=== PATIENT | male | born 1945 | race Caucasian/White ===

== ENCOUNTER 2018-07-15 11:33 | Day surgery (SDC) | payer MEDICARE, OTHER ==
[~2018-07-15] VITALS: Ht 177.8 cm; Wt 97.8 kg
[~2018-07-15 11:33] MED LIST: ALBU3IS INH; ALBU90OI6 INH; ALBU90OI61 INH; ALFU10 PO; ASPI325 PO; AZIT500 PO; BENZ100A PO; BUPR150T2 PO; BUPR75 PO; Budeprion Xl300 MG PO; CALCITRATE200 MG PO; CHOL10002 PO; CITA20 PO; Citalopram HBr40 MG PO; Colace100 MG PO; ESOM20 PO; FLUSAL2505 IH; FLUSAL5005 INH; GUAI600T33 PO; HYDCHL25 PO; Hair, Skin & N1 EACH PO; IBUP600 PO; Kristalose20 GM PO; LAVAP17G PO; LEVFLO500 PO; LEVO750 PO; MIRT15 PO; MONT10T PO; MULTI VITAMIN1 EACH PO; MULTIVITAMIN; PRED20 PO; Percocet 5-3251 EACH PO; Prednisone10 MG PO; Prednisone20 MG PO; Stool Softener100 MG PO; TRAM50 PO; Ventolin Soln3 ML INH; ZAFI20 PO; [UNRECOGNIZED DRUG - REMARK] PO
== END 2018-07-15 14:10 | disposition home or self-care (01) ==
LOC: ORSCSDS 11:33
PROVIDERS: Internal Medicine Gastroenterology
PROC: 0DB98ZX Excision of Duodenum, Via Natural or Artificial Opening Endoscopic, Diagnostic (ICD-10-PCS; principal; 2018-07-15 13:15)
PROC: 0DB68ZX Excision of Stomach, Via Natural or Artificial Opening Endoscopic, Diagnostic (ICD-10-PCS; principal; 2018-07-15 13:15)
DX: R10.13 Epigastric pain (principal); K31.7 Polyp of stomach and duodenum; K59.00 Constipation, unspecified; K20.9 Esophagitis, unspecified; K29.70 Gastritis, unspecified, without bleeding; K29.80 Duodenitis without bleeding; K21.9 Gastro-esophageal reflux disease without esophagitis; J44.9 Chronic obstructive pulmonary disease, unspecified; F32.9 Major depressive disorder, single episode, unspecified; F17.210 Nicotine dependence, cigarettes, uncomplicated; Z79.899 Other long term (current) drug therapy
CPT/HCPCS: 88305; 88342; J7120

== ENCOUNTER 2019-11-04 15:42 | Inpatient (IN) | payer MEDICARE, OTHER ==
[~2019-11-04] VITALS: Ht 330.2 cm; Wt 104.4 kg
[~2019-11-04 15:42] MED LIST changes: +ALBU2.5V5 NEB; +ALBU90OI INH; +ALLER-TEC PO; -CHOL10002 PO; +COQ1050 MG PO; +FLUT1DIS5 INH; +TIOT18 INH; +VITAMIN D31 ML PO; -Ventolin Soln3 ML INH
--- NOTE | 2019-11-08 09:46 | NUR ---
PT ARRIVED TO [facility] VIA WHEELCHAIR. IS ABLE TO AMBULATE SHORT DISTANCES WITH PERSONAL CANE. History, Chart, Medications and Allergies reviewed before start of procedure.Patient confirms NPO status and agrees with scheduled surgery. PATIENT REPORTS COMPLETING 5 CONSECUTIVE DAYS OF MUPIROCIN OINTMENT AND CHLORHEXIDINE SHOWERS. BILATERAL UPPER AND LOWER LOBE EXPIRATORY WHEEZES PRESENT. Surgical site prepped with 2% Chlorhexidine cloth wipe.
--- NOTE | 2019-11-08 19:24 | NUR ---
SHIFT SUMMARY PT A&OX4, VSS, S/P R AUGUST, SURGICAL DRESSINGS APPEAR CDI, WIGGLES TOES/MOVES FEET AND DENIES N&T IN ALL EXT'S. PAIN MANAGED PER EMAR. JOSH PO, DENIES N&V. I.S. EDU & ENC 10X Q1H WHILE AWAKE, PT DEMONSTRATED. REPORT GIVEN TO ELIDA SPARKS.
[2019-11-09 04:12] LABS: BASOPHILS ABSOLUTE AUTO 0.02 K/mm3 (0.00-0.23); BASOPHILS PERCENT AUTO 0 % (0-2); EOSINOPHILS ABSOLUTE AUTO 0.01 K/mm3 (0.00-0.68); EOSINOPHILS PERCENT AUTO 0 % (0-6); Hematocrit 34.3 % (37.0-53.0); IMMATURE GRAN ABSOLUTE AUTO 0.05 K/mm3 (0.00-0.10); IMMATURE GRAN PERCENT AUTO 0 % (0-1); LYMPHOCYTES ABSOLUTE AUTO 1.41 K/mm3 (0.84-5.20); LYMPHOCYTES PERCENT AUTO 12 % (21-46); MONOCYTES PERCENT AUTO 11 % (4-13); Mean Corpuscular HGB 28.3 pg (26.0-34.0); Mean Corpuscular HGB Conc 32.1 g/dL (31.5-36.5); Mean Corpuscular Volume 88 fL (80-100); Mean Platelet Volume 9.7 fL (9.1-12.4); NEUTROPHILS ABSOLUTE AUTO 8.96 K/mm3 (1.96-9.15); NEUTROPHILS PERCENT AUTO 76 % (41-73); Platelet Count 167 K/mm3 (150-400); RDW Coefficient Variation 13.3 % (11.7-14.2); RDW Standard Deviation 43.2 fL (35.1-46.3); Red Blood Cell Count 3.89 M/mm3 (4.30-5.90); White Blood Cell Count 11.75 K/mm3 (4.00-11.30)
[2019-11-09 04:30] LABS: Bun/Creatinine Ratio 19.7 (12.0-20.0); Calcium, Blood 8.2 mg/dL (8.5-10.1); Creatinine, Blood 1.37 mg/dL (0.60-1.20); Potassium, Blood 4.4 mmol/L (3.5-5.5)
--- NOTE | 2019-11-09 05:45 | NUR ---
SHIFT SUMMARY: IVET HAS RESTED INTERMITTENTLY THROUGHOUT THE NIGHT. HE IS AMBULATING WITH 1 PERSON ASSIST W/FWW. HE IS TOLERATING PO INTAKE WELL. THE IV TO HIS RIGHT AC IS PATENT. DRESSINGS TO HIS RIGHT HIP ARE C/D&I. HE IS VOIDING WITHOUT DIFFICULTY. PAS AND MICHELET HOSE IN PLACE. HE IS ORA INTERMITTENTLY, HE REPORTS USING 1.5 LPM VIA NC AT HOME PRN. HE IS ABLE TO IDENTIFY WHEN HE NEEDS SUPPLEMENTAL O2. HE IS LYING COMFORTABLY IN BED WITH HIS CALL LIGHT IN REACH.
[2019-11-09] MEDS ORDERED: OXYC10ER PO (08:31)
[2019-11-09] MEDS ORDERED: Bactrim Ds Tab1 EACH PO (08:33)
[2019-11-09] MEDS ORDERED: ASPI325EC PO (08:33)
--- NOTE | 2019-11-09 15:17 | NUR ---
DISCHARGE SUMMARY PT A&OX4, VSS, LEFT FLOOR VIA WC WITH ROBOTICS TESTING TECHNICIAN, TO GO HOME WITH , WITH ALL PERSONAL POSSESSIONS INCLUDING DISCHARGE PACKET AND EXTRA AQUACEL DRESSINGS. DC INSTRUCTIONS PROVIDED. PT REPORTED UNDERSTANDING THOSE INSTRUCTIONS INCLUDING OK TO SHOWER, NO TUB/JACUZZI, CHANGE AQUACEL Q3-5D UNTIL FU WITH SG IN 2 WKS, PHYSICAL THERAPY SCHEDULED, SHORT FREQUENT AMBULATION WITH FWW, PAIN MANAGEMENT. IV DC'D.
== END 2019-11-09 15:01 | disposition home or self-care (01) | DRG 470 ==
LOC: SURS 11-08 08:40 → PRE IP 11-08 10:30 → SURS 11-08 15:33
PROVIDERS: ADMIT Orthopaedic Surgery
PROC: 0SR904A Replacement of Right Hip Joint with Ceramic on Polyethylene Synthetic Substitute, Uncemented, Open Approach (ICD-10-PCS; principal; 2019-11-08 10:30)
DX: M16.11 Unilateral primary osteoarthritis, right hip (principal); J44.9 Chronic obstructive pulmonary disease, unspecified; K21.9 Gastro-esophageal reflux disease without esophagitis; Z87.891 Personal history of nicotine dependence
CPT/HCPCS: 36415; 72170; 80048; 83735; 85025; 88300; 94640; 94760; 97110; 97116; 97162; 97165; 97530; 97535; A9270-GY; C1713; C1776; J0171; J0360; J0690; J0735; J1100; J1170; J1885; J2250; J2370; J2405; J2704; J2795; J3010; J3370; J7120

== ENCOUNTER 2020-01-24 18:54 | Inpatient (IN) | payer MEDICARE, OTHER ==
[~2020-01-24] VITALS: Ht 177.8 cm; Wt 108.8 kg
[~2020-01-24 18:54] MED LIST changes: -ALLER-TEC PO; +ASPI325EC PO; +Bactrim Ds Tab1 EACH PO; +CEPH500 PO; +Mupirocin22 GM TOP; +OXYC10ER PO; -VITAMIN D31 ML PO; +VITAMIN D31000 UNI1 PO; +ZYRTEC10 M2 PO
[2020-01-24 19:54] LABS: BASOPHILS ABSOLUTE AUTO 0.08 K/mm3 (0.00-0.23); BASOPHILS PERCENT AUTO 1 % (0-2); EOSINOPHILS ABSOLUTE AUTO 0.31 K/mm3 (0.00-0.68); EOSINOPHILS PERCENT AUTO 5 % (0-6); Hematocrit 44.1 % (37.0-53.0); Hemoglobin 13.9 g/dL (13.5-17.5); IMMATURE GRAN ABSOLUTE AUTO 0.02 K/mm3 (0.00-0.10); IMMATURE GRAN PERCENT AUTO 0 % (0-1); LYMPHOCYTES ABSOLUTE AUTO 2.38 K/mm3 (0.84-5.20); LYMPHOCYTES PERCENT AUTO 36 % (21-46); MONOCYTES ABSOLUTE AUTO 0.86 K/mm3 (0.16-1.47); MONOCYTES PERCENT AUTO 13 % (4-13); Mean Corpuscular HGB 27.9 pg (26.0-34.0); Mean Corpuscular HGB Conc 31.5 g/dL (31.5-36.5); Mean Corpuscular Volume 89 fL (80-100); Mean Platelet Volume 9.9 fL (9.1-12.4); NEUTROPHILS ABSOLUTE AUTO 3.03 K/mm3 (1.96-9.15); NEUTROPHILS PERCENT AUTO 45 % (41-73); Platelet Count 200 K/mm3 (150-400); RDW Coefficient Variation 12.8 % (11.7-14.2); RDW Standard Deviation 41.8 fL (35.1-46.3); Red Blood Cell Count 4.98 M/mm3 (4.30-5.90); White Blood Cell Count 6.68 K/mm3 (4.00-11.30)
[2020-01-24 20:02] LABS: Alanine Aminotransfer (ALT/SGP 32 U/L (12-78); Albumin, Blood 3.9 g/dL (3.4-5.0); Alk Phos 72 U/L (50-136); Anion Gap 5 mmol/L (6-16); Aspartate Aminotrans (AST/SGOT 26 U/L (12-37); Bilirubin, Total 0.3 mg/dL (0.1-1.0); Blood Urea Nitrogen 24 mg/dL (8-24); Bun/Creatinine Ratio 24.7 (12.0-20.0); CO2, Blood 24 mmol/L (21-32); Calcium, Blood 9.5 mg/dL (8.5-10.1); Chloride, Blood 109 mmol/L (98-108); Creatinine, Blood 0.97 mg/dL (0.60-1.20); Globulin, Blood 3.9 g/dL (2.2-4.0); Glomerular Filtration Rate >60 (60-); Glucose, Blood 91 mg/dL (70-99); Potassium, Blood 4.8 mmol/L (3.5-5.5); Sodium, Blood 138 mmol/L (136-145); Total Protein, Blood 7.8 g/dL (6.4-8.2)
[2020-01-24] MEDS ORDERED: Calcitonin-Sal3.7 ML (21:32)
--- NOTE | 2020-01-24 23:12 | NUR ---
2312-DALILA IS BEING ADMITTED FOR RLE CELLULITIS. HE ARRIVED TO FLOOR VIA AND WAS ABLE TO TRANSFER SELF INDEPENDENT TO THE BED. HE WAS PREVIOUSLY IN ER 2 DAYS AGO AND GOT ANTIBOTICS, WENT HOME AND HAS BEEN TAKING THEM BUT IT WAS NOT GETTING BETTER. THEREFORE HE CAME BACK IN. HE THINKS HE GOT IT WHEN PLAYING [place] [employer] [place], HE DID NOT WERE SHOES. HE HAS SEVERAL SCABBED UP AREAS ON THE BOTTOM OF HIS RIGHT FOOT, AND A SCAB UNDER THE GREAT TOE ON TOP OF THE FOOT. REDNESS, WARMTH, AND SWELLING ARE FROM THE FOOT TO THE MID CALF AREA. STATES PAIN ONLY AT 3-4 AT THIS TIME. VS WNL, AFEBRILE ADMISSION COMPLETED. DENIED FLU SHOT. CALL LIGHT IN REACH. SNACKS GIVEN.
[2020-01-25 05:10] LABS: Hematocrit 40.6 % (37.0-53.0); Hemoglobin 12.8 g/dL (13.5-17.5); Mean Corpuscular HGB 28.1 pg (26.0-34.0); Mean Corpuscular HGB Conc 31.5 g/dL (31.5-36.5); Mean Corpuscular Volume 89 fL (80-100); Mean Platelet Volume 9.8 fL (9.1-12.4); Platelet Count 195 K/mm3 (150-400); RDW Coefficient Variation 12.8 % (11.7-14.2); Red Blood Cell Count 4.55 M/mm3 (4.30-5.90); White Blood Cell Count 6.95 K/mm3 (4.00-11.30)
[2020-01-25 05:30] LABS: Alanine Aminotransfer (ALT/SGP 35 U/L (12-78); Albumin, Blood 3.4 g/dL (3.4-5.0); Alk Phos 67 U/L (50-136); Anion Gap 5 mmol/L (6-16); Aspartate Aminotrans (AST/SGOT 19 U/L (12-37); Bilirubin, Total 0.3 mg/dL (0.1-1.0); Blood Urea Nitrogen 23 mg/dL (8-24); Bun/Creatinine Ratio 18.7 (12.0-20.0); CO2, Blood 27 mmol/L (21-32); Chloride, Blood 109 mmol/L (98-108); Creatinine, Blood 1.23 mg/dL (0.60-1.20); Globulin, Blood 3.5 g/dL (2.2-4.0); Glomerular Filtration Rate >60 (60-); Glucose, Blood 86 mg/dL (70-99); Potassium, Blood 4.1 mmol/L (3.5-5.5); Sodium, Blood 141 mmol/L (136-145); Total Protein, Blood 6.9 g/dL (6.4-8.2)
--- NOTE | 2020-01-25 05:42 | NUR ---
SHIFT SUMMARY: DALILA WAS ADMITTED TO THE FLOOR FOR CELLULITIS OF THE RLE. HE IS AOX3, INDEPENDENT IN THE ROOM. OVERALL ASSESSMENT IS BENIGN OTHER THEN HIS RLE, AT WHICH IS RED FROM FOOT TO MID CALF. IT IS OUTLINED FOR MONITORING. THERE IS SCAB ON ANTERIOR OF FOOT UNDER THE GREAT TOE THAT HAS NO DRAINAGE. THERE IS SEVERAL SCATTERED SCABS ON THE BOTTOM OF HIS FOOT THAT ALSO HAVE NO DRAINAGE. THIS IS WHERE HE APPARENTLY HAD SMALL SLITS IN HIS FOOT, THAT GOT INFECTED WHEN SHOWERING AT THE [employer]. FOOT IS WARM TO TOUCH AND TENDER. PAIN AVERAGE IS 3/10. NO PAIN MEDS WERE GIVEN. VS HAVE BEEN WNL, AFEBRILE. IV CONTINUES TO INFUSE THE 1 LITER FLUIDS ORDERED. ANTIBOTIC GIVEN. HE SLEPT MOST OF THE NIGHT. CALL LIGHT REMAINED IN REACH. WILL REPORT TO DAY SHIFT.
--- NOTE | 2020-01-26 07:42 | NUR ---
CLASSIFICATION COUNSELOR SUMMARY PT A/O X4, INDEPENDENT IN ROOM. DENIES PAIN, SOB, NAUSEA. NO ACUTE CHANGES. VSS. PLEASANT AND COOPERATIVE. REPORT GIVEN TO AM NURSE.
[2020-01-26] MEDS ORDERED: Florastor250 MG PO (13:17)
[2020-01-26] MEDS ORDERED: TERB250 PO (13:18)
[2020-01-26] MEDS ORDERED: Doxycycline Mo100 M1 PO (13:18)
--- NOTE | 2020-01-26 15:57 | NUR ---
Discharge instructions reviewed with patient. Patient verbalizes understanding. Copy given to patient to take home. PATIENT EDUCATED ABOUT FOLLOW UP APPT WITH STRING WINDING MACHINE OPERATOR AND PCP, WELL TO PICKUP RX AT THE PHARMACY THIS AFTERNOON. PERIPHERAL IV REMOVED. TRANSPORTED VIA WHEELCHAIR TO PERSONAL VEHICLE DRIVEN BY PATIENT'S .
== END 2020-01-26 16:03 | disposition home or self-care (01) | DRG 603 ==
LOC: ER 18:54 → MEDS 22:03 → ENPENDDIS 01-26 11:32 → MEDS 01-26 16:03
PROVIDERS: Physician Assistant; ADMIT Internal Medicine
DX: L03.115 Cellulitis of right lower limb (principal); B35.1 Tinea unguium; F32.9 Major depressive disorder, single episode, unspecified; J44.9 Chronic obstructive pulmonary disease, unspecified; K21.9 Gastro-esophageal reflux disease without esophagitis; R59.0 Localized enlarged lymph nodes; Z85.46 Personal history of malignant neoplasm of prostate; Z87.891 Personal history of nicotine dependence; Z96.641 Presence of right artificial hip joint
CPT/HCPCS: 36415; 73630; 80053; 85025; 85027; 93971; 94640; 94760; 96365; 99284-25; A9270-GY; J0690; J1650; J7030

== ENCOUNTER 2020-06-22 07:14 | Day surgery (SDC) | payer MEDICARE, OTHER ==
[~2020-06-22] VITALS: Ht 177.8 cm; Wt 111.7 kg
[~2020-06-22 07:14] MED LIST changes: +Calcitonin-Sal3.7 ML; +Doxycycline Mo100 M1 PO; +Florastor250 MG PO; +TERB250 PO
--- NOTE | 2020-06-22 08:31 | NUR ---
Ambulatory in Day Surgery WITH CANE. History, Chart, Medications and Allergies reviewed before start of procedure. Lungs clear T/O to Auscultation. Patient confirms NPO status and agrees with scheduled surgery. Pre-Op teaching done. Pt verbalizes understanding. Patient States Post-Procedure ride home has been arranged.
--- NOTE | 2020-06-22 09:04 | NUR ---
06/22/20 0904 Tia Funez History, Chart, Medications and Allergies reviewed before start of procedure.MAC CASE WITH DR. BARBA. SEE ANETHESIA RECORD FOR CARE
--- NOTE | 2020-06-22 10:46 | NUR ---
"DAY SURGERY RN | DISCHARGE VSS. A/O. DISCHARGE INSTRUCTIONS GIVEN TO PATIENT WITH FAMILY PRESENT. NO ISSUES. TAKEN IN WHEELCHAIR TO FRONT ENTRANCE BY VOLUNTEER, IS RIDE HOME. TOLERATING PO WATER."
== END 2020-06-22 22:56 | disposition home or self-care (01) ==
LOC: ORSCMMR 07:14 → ORD 08:45 → ORSCMMR 22:56
PROVIDERS: Internal Medicine Gastroenterology
PROC: 0DBK8ZX Excision of Ascending Colon, Via Natural or Artificial Opening Endoscopic, Diagnostic (ICD-10-PCS; principal; 2020-06-22 08:45)
PROC: 0DB68ZX Excision of Stomach, Via Natural or Artificial Opening Endoscopic, Diagnostic (ICD-10-PCS; principal; 2020-06-22 08:45)
PROC: 0DB58ZX Excision of Esophagus, Via Natural or Artificial Opening Endoscopic, Diagnostic (ICD-10-PCS; principal; 2020-06-22 08:45)
PROC: 0DBM8ZX Excision of Descending Colon, Via Natural or Artificial Opening Endoscopic, Diagnostic (ICD-10-PCS; principal; 2020-06-22 08:45)
PROC: 0DBL8ZX Excision of Transverse Colon, Via Natural or Artificial Opening Endoscopic, Diagnostic (ICD-10-PCS; principal; 2020-06-22 08:45)
DX: K21.0 Gastro-esophageal reflux disease with esophagitis (principal); Z12.11 Encounter for screening for malignant neoplasm of colon; Z86.010 Personal history of colon polyps; Z80.0 Family history of malignant neoplasm of digestive organs; D12.3 Benign neoplasm of transverse colon; D12.2 Benign neoplasm of ascending colon; D12.4 Benign neoplasm of descending colon; J44.9 Chronic obstructive pulmonary disease, unspecified; Z85.46 Personal history of malignant neoplasm of prostate; Z87.891 Personal history of nicotine dependence; Z79.899 Other long term (current) drug therapy
CPT/HCPCS: 88305; 88312; 88342; J2704; J7120